=== PATIENT | female | born 1985 | race Asian ===

== ENCOUNTER 2023-06-23 18:30 | Emergency (ER) | payer OTHER, SELFPAY ==
[2023-06-23 18:37] VITALS: BP 131/90; PULSE 73; RESP 16; TEMP 36.4; O2SAT 99; BMI 29.2
[2023-06-23] MEDS: SODIUM CHLORIDE 0.9% 1,000 ML 1000 ML IV (19:01)
[2023-06-23] MEDS: MECLIZINE HCL 12.5 MG TABLET 50 MG PO (19:01)
[2023-06-23] MEDS: ONDANSETRON 4 MG/2 ML INJ IV (19:01)
[2023-06-23 19:03] LABS: Add Manual Diff / Slide Review NO; Basophils Absolute Auto 0 /uL (0-100); Basophils Percent Auto 0.9 % (0-2); Eosinophils Absolute Auto 100 /uL (0-450); Eosinophils Percent Auto 1.6 % (2-4); Hematocrit 42.8 % (36-46); Hemoglobin 14.6 g/dL (12.0-16.0); Lymphocytes Absolute Auto 1900 /uL (1100-4500); Lymphocytes Percent Auto 34.8 % (25-40); Mean Corpuscular HGB Conc 34.1 % (30-36); Monocytes Absolute Auto 300 /uL (0-900); Monocytes Percent Auto 5.7 % (3-14); Neutrophils Absolute Auto 3200 /uL (1500-7000); Platelet Count 348 X10^3/uL (150-400); Red Blood Cell Count 4.87 X10^6/uL (4.0-5.2); Red Cell Distribution Width 12.7 % (11.6-14.8); White Blood Cell Count 5.5 X10^3/uL (4.5-11.0)
--- NOTE | 2023-06-23 19:07 | PC.NURSE ---
Patient reports dizziness constantly for last week, waxing and waning in severity. Tends to get worse by late afternoon, associated nausea and vomiting. Patient reports blurry vision, like it just doesn't feel right Patient states she tried one day of dramamine with no relief.
[2023-06-23 19:17] LABS: Alanine Aminotransferase 23 IU/L (<35); Albumin 4.4 g/dL (3.5-5.0); Albumin Globulin Ratio 1.3 (1.0-2.8); Alkaline Phosphatase 72 U/L (38-126); Aspartate Aminotransferase 26 IU/L (14-36); Bilirubin Total 0.7 mg/dL (0.2-1.3); Blood Urea Nitrogen 6 mg/dL (7-17); Calcium 9.7 mg/dL (8.4-10.2); Carbon Dioxide 28 mmol/L (22-32); Chloride 102 mmol/L (98-107); Estimated Glomerular Filt Rate > 60 mL/min (>60); Globulin 3.3 g/dL (1.7-4.1); Glucose 90 mg/dL (70-100); HEMOLYSIS 31 (0-50); Potassium 3.7 mmol/L (3.4-5.1); Sodium 135 mmol/L (137-145); Total Protein 7.7 g/dL (6.3-8.2)
[2023-06-23] MEDS: ACETAMINOPHEN 325 MG TABLET 650 MG PO (19:34)
[2023-06-23 20:19] VITALS: PULSE 69; O2SAT 100
[2023-06-23 20:20] VITALS: BP 129/79; PULSE 65; O2SAT 100
[2023-06-23 20:30] VITALS: BP 118/72; PULSE 62; O2SAT 100
[2023-06-23 21:00] VITALS: BP 113/68; PULSE 61; O2SAT 99
--- NOTE | 2023-06-23 21:04 | ED.DIZZY ---
HPI - Dizziness General Chief Complaint: Dizziness Stated Complaint: dizzy/V T-2 Time Seen by Provider: 06/23/23 21:00 Source: patient Mode of arrival: Ambulatory History of Present Illness HPI Narrative: Patient is a 37-year-old female who has a history hypothyroid presenting today with dizziness. She reports that she had COVID June 03 since then she is had dizziness off and on. She reports that definitely worse with movement. However the last 2 days it has been so bad that she is been vomiting. No chest pain or palpitations no numbness tingling or weakness no visual changes. But today it got significantly worse. She thought that it would be getting better but it is not. She denies any further COVID symptoms no fever or chills. She reports that she did have bad COVID but had pretty extreme fatigue. Related Data Previous Rx's Medication Instructions Recorded meclizine 25 mg tablet 25 mg PO TID PRN dizziness #20 tabs 06/23/23 ondansetron 4 mg disintegrating 4 mg PO Q8H PRN nausea and 06/23/23 tablet vomiting #20 tabs Allergies Allergy/AdvReac Type Severity Reaction Status Date / Time No Known Drug Allergies Allergy Verified 06/23/23 18:40 Review of Systems Review of Systems ROS Unobtainable: All systems reviewed & are unremarkable except as noted in HPI and below Patient History Social History Smoking Status: Never smoker Smoking Status: Never smoker alcohol intake frequency: holidays/special occasions only Substance Use Type: does not use Exam Initial Vital Signs Initial Vital Signs: Vital Signs Temperature 97.6 F 06/23/23 18:37 Pulse Rate 73 06/23/23 18:37 Respiratory Rate 16 06/23/23 18:37 Blood Pressure 131/90 06/23/23 18:37 Pulse Oximetry 99 06/23/23 18:37 Oxygen Delivery Method Room Air 06/23/23 18:37 GENERAL: Alert 37-year-old female and in no acute distress. HEENT: Head atraumatic,EOMI,+ nystagmus pupils reactive, face symmetric, moist mucous membranes CARDIOVASCULAR: Regular rate and rhythm without murmurs, rubs or gallops. RESPIRATORY: Breath sounds equal bilaterally, no wheezes rales or rhonchi. ABDOMEN: Soft, nontender. Normoactive bowel sounds all 4 quadrants. No guarding or rebound. EXTREMITIES: Normal range of motion, no clubbing or edema. Neurovascularly intact NEUROLOGICAL: Alert and oriented x4 SKIN: Warm, dry, no laceration, no petechiae, no rashes or lesions. Scores NIH Stroke Scale Level of Conciousness: Alert, keenly responsive Ask month/age: Answers both questions correctly. Open/close eyes, close hand: Performs both tasks correctly Best gaze horizontal: Normal Visual martins: No visual loss Facial palsy: Normal symetrical movement Left arm drift: No drift for full 10 sec Right arm drift: No drift for full 10 sec Left leg drift: No drift for full 5 sec Right leg drift: No drift for full 5 sec Limb ataxia: Absent Sensory on face/arms/legs: Normal, no sensory loss Best language: No aphasia, normal Dysarthria: Normal Extinction or inattention: No abnormality Total NIH Stroke scale score: 0 Course Orders Ordered: ED Orders 06/23/23 18:53 Complete Blood Count AUTO DIFF Stat Comprehensive Metabolic Panel Stat 06/23/23 21:18 EKG-12 Lead Stat Discontinued Medications Acetaminophen (Acetaminophen 325 Mg Tablet) 650 mg PO Q4H PRN PRN Reason: Fever/Mild Pain (1-3) Last Admin: 06/23/23 19:34 Dose: 650 mg Documented By: MATTY Sodium Chloride (Normal Saline 0.9%) 1,000 mls @ 1,000 mls/hr IV BOLUS ONE Stop: 06/23/23 19:42 Last Infusion: 06/23/23 19:48 Dose: Infused Documented By: Admin: 06/23/23 19:01 Dose: 1,000 mls/hr Documented By: THOMAS Meclizine HCl (Meclizine Hcl 12.5 Mg Tablet) 50 mg PO NOW ONE Stop: 06/23/23 18:44 Last Admin: 06/23/23 19:01 Dose: 50 mg Documented By: THOMAS Meclizine HCl (Meclizine Hcl 12.5 Mg Tablet) 25 mg PO NOW ONE Stop: 06/23/23 21:13 Last Admin: 06/23/23 21:37 Dose: 25 mg Documented By: SILKE Ondansetron HCl (Ondansetron 4 Mg/2 Ml Inj) 4 mg IV NOW ONE Stop: 06/23/23 18:44 Last Admin: 06/23/23 19:01 Dose: 4 mg Documented By: [facility] Ondansetron HCl (Ondansetron 4 Mg Odt Prepack) 1 bottle MISC SEEINSTR ONE Stop: 06/23/23 21:13 Last Admin: 06/23/23 21:37 Dose: 1 bottle Documented By: Vital Signs Vital signs: Vital Signs - 8 hr 06/23/23 20:19 06/23/23 20:20 06/23/23 20:20 Pulse Rate 69 65 Blood Pressure 129/79 Pulse Oximetry 100 100 06/23/23 20:30 06/23/23 20:30 06/23/23 21:00 Pulse Rate 62 Blood Pressure 118/72 113/68 Pulse Oximetry 100 06/23/23 21:00 06/23/23 21:30 06/23/23 21:30 Pulse Rate 61 68 Blood Pressure 125/73 Pulse Oximetry 99 100 MDM - Dizziness Lab Data 06/23/23 18:53 06/23/23 18:53 Labs: Lab Results 06/23/23 Range/Units 18:53 WBC 5.5 (4.5-11.0) X10^3/uL RBC 4.87 (4.0-5.2) X10^6/uL Hgb 14.6 (12.0-16.0) g/dL Hct 42.8 (36-46) % MCV 88.0 (80-100) fL MCH 30.0 (26-34) PG MCHC 34.1 (30-36) % RDW 12.7 (11.6-14.8) % Plt Count 348 (150-400) X10^3/uL Neut % (Auto) 57.0 (50-75) % Lymph % (Auto) 34.8 (25-40) % [place] % (Auto) 5.7 (3-14) % Eos % (Auto) 1.6 L (2-4) % Baso % (Auto) 0.9 (0-2) % Neut # (Auto) 3200 (6282-2710) /uL Lymph # (Auto) 1900 (6011-1857) /uL [place] # (Auto) 300 (0-900) /uL Eos # (Auto) 100 (0-450) /uL Baso # (Auto) 0 (0-100) /uL Sodium 135 L (137-145) mmol/L Potassium 3.7 (3.4-5.1) mmol/L Chloride 102 (98-107) mmol/L Carbon Dioxide 28 (22-32) mmol/L BUN 6 L (7-17) mg/dL Creatinine 0.50 L (0.52-1.04) mg/dL Estimated GFR > 60 (>60) mL/min BUN/Creatinine Ratio 12.0 (6-22) Glucose 90 (70-100) mg/dL Calcium 9.7 (8.4-10.2) mg/dL Total Bilirubin 0.7 (0.2-1.3) mg/dL AST 26 (14-36) IU/L ALT 23 (<35) IU/L Alkaline Phosphatase 72 (38-126) U/L Total Protein 7.7 (6.3-8.2) g/dL Albumin 4.4 (3.5-5.0) g/dL Globulin 3.3 (1.7-4.1) g/dL Albumin/Globulin Ratio 1.3 (1.0-2.8) Urine Dip Bedside Urine Glucose Negative Bedside Urine Bilirubin - Negative Bedside Urine Ketone - Negative Urine Specific [place] 1.01 Bedside Urine Occult Blood +/- Bedside Urine pH 7.5 Bedside Urine Protein - Negative Bedside Urine Urobilinogen - Negative Bedside Urine Nitrite - Negative Bedside Urine Leukocytes - Negative Esterase ECG Data Interpretation: Normal sinus rhythm rate 53 HI interval 172 are QRS [address] changes mild artifact MDM Narrative Medical decision making narrative: Patient is a 37-year-old female who presents with dizziness. She is had ongoing dizziness for the past couple of weeks definitely positional. Worse over the last 2 days with nausea vomiting. Symptoms are most consistent with a vestibular neuritis and or benign paroxysmal positional vertigo. Having any focal deficits to suggest CVA. She is actually improving after meclizine and Zofran. We talked about an Ericka maneuver she was told to do that previously but it made her significantly worse she is not willing to try now. She has been referred to physical therapy we also talked about ENT referral Discharge Plan Departure Patient Disposition: Home Clinical Impression: Vertigo Instructions: DI for Vertigo Activity Restrictions/Additional Instructions: *You have been diagnosed with vertigo *What to do: At this time this should resolve on its own. You can try an Ericka maneuver at home if you choose. I agree with physical therapy may require ear nose and throat referral. *Continue to take medications as directed --> [facility] Meclizine 25-50 mg every 8 hours for dizziness Zofran 4 mg every 6 8 hours if needed for nausea or vomiting *Follow up with your primary care provider in 2-3 days or call [phone] *Return to ER if you should have persistent dizziness numbness tingling weakness visual changes or any new, worsening or concerning symptoms Prescriptions: New meclizine 25 mg tablet 25 mg PO TID PRN (Reason: dizziness) Qty: 20 0RF ondansetron 4 mg tablet,disintegrating 4 mg PO Q8H PRN (Reason: nausea and vomiting) Qty: 20 0RF Stand Alone Forms: Patient Portal/API
[2023-06-23 21:30] VITALS: BP 125/73; PULSE 68; O2SAT 100
[2023-06-23] MEDS: ONDANSETRON 4 MG ODT PREPACK 1 BOTTLE MISC (21:37)
[2023-06-23] MEDS: MECLIZINE HCL 12.5 MG TABLET 25 MG PO (21:37)
== END 2023-06-23 21:43 | disposition home or self-care (01) ==
PROVIDERS: Emergency Provider Emergency Medicine
DX: R42 Dizziness and giddiness (principal)
CPT/HCPCS: 36415; 80053; 81003; 85025; 93005; 96361; 96374; 99284; J2405

== ENCOUNTER → 2023-07-03 18:39 | Outpatient (CLI) | payer OTHER, SELFPAY ==
--- NOTE | 2023-07-03 | DI.MRI.S_ITS ---
PROCEDURE: MR HEAD/BRAIN WO CON INDICATIONS: Dizziness and giddiness TECHNIQUE: Noncontrast axial T1 spin echo, axial T2 fast spin echo, sagittal and axial FLAIR, coronal T2 fast spin echo, axial gradient echo, axial diffusion and ADC through the brain. COMPARISON: None. FINDINGS: Image quality: Excellent. CSF Spaces: Basal cisterns are patent. No extra-axial fluid collections. Ventricles are normal in size and shape. Brain: No intracranial masses or hemorrhage. Cortez/white matter interface is normal. Brainstem appears normal. Diffusion-weighted images demonstrate no acute ischemic insult. No chronic ischemic insults. Normal intravascular flow voids are present. Skull and face: Calvarium has normal marrow signal. Orbits appear normal. Sinuses: Partially visualized right maxillary mucous retention cyst versus polyp.. IMPRESSION: Unremarkable exam. Dictated by: Laquita Beverly M.D. on 07/04/2023 at 14:46 Approved by: Laquita Beverly M.D. on 07/04/2023 at 14:47
== END ==
PROVIDERS: Referring Provider Physician Assistant; Visit Provider Physician Assistant
DX: R42 Dizziness and giddiness (principal)
CPT/HCPCS: 70551

== ENCOUNTER 2024-02-08 11:32 | Emergency (ER) | payer OTHER, SELFPAY ==
[2024-02-08 11:50] VITALS: BP 120/84; PULSE 92; RESP 18; TEMP 37.3; O2SAT 98; BMI 29.2
[2024-02-08 12:45] LABS: Influenza A - CEPHEID Flu A NEGATIVE (NEGATIVE); Influenza B - CEPHEID Flu B NEGATIVE (NEGATIVE); Respiratory Syncytial Virus Negative (Negative)
[2024-02-08 12:50] LABS: COVID-19 CEPHEID 4-PLEX PCR Negative (Negative)
--- NOTE | 2024-02-08 13:22 | ED.URI ---
HPI - URI/Sore Throat <Janelle Kwan PA-C - Last Filed: 02/08/24 14:35> General Chief Complaint: Upper Respiratory Symptoms Stated Complaint: cough, chest pain, flu like symptoms Time Seen by Provider: 02/08/24 13:11 Source: patient Mode of arrival: Ambulatory History of Present Illness HPI Narrative: Is a 38-year-old woman presenting with concern for 2-3 days of upper respiratory symptoms with bothersome cough productive of clear phlegm nasal congestion and headaches. Patient also endorses some body aches. Sore throat is her primary complaint. Patient states she has been eating and drinking normally and denies nausea vomiting diarrhea fevers chills or any other symptoms. No one around her has been sick but she has a child in school and a cough has been going around. Related Data Previous Rx's Medication Instructions Recorded meclizine 25 mg tablet 25 mg PO TID PRN dizziness #20 tabs 06/23/23 ondansetron 4 mg disintegrating 4 mg PO Q8H PRN nausea and 06/23/23 tablet vomiting #20 tabs azelastine 137 mcg (0.1 %) nasal 2 spray intranasal BID 14 days #30 02/08/24 spray aerosol mL benzonatate 100 mg capsule 100 mg PO TID PRN cough 10 days 02/08/24 #30 caps codeine 7.5 mg-guaifenesin 225 5 ml PO Q6H PRN cold symptoms 10 02/08/24 mg/5 mL oral liquid days #473 mL Allergies Allergy/AdvReac Type Severity Reaction Status Date / Time No Known Drug Allergies Allergy Verified 06/23/23 18:40 Review of Systems <Janelle Kwan PA-C - Last Filed: 02/08/24 14:35> Review of Systems Narrative: See HPI Patient History <Janelle Kwan PA-C - Last Filed: 02/08/24 14:35> Social History Smoking Status: Never smoker Smoking Status: Never smoker alcohol intake frequency: holidays/special occasions only Substance Use Type: does not use Exam <Janelle Kwan PA-C - Last Filed: 02/08/24 14:35> Narrative Exam Narrative: GENERAL: [38] year old patient appears stated age. Well-developed patient, in mild distress. HEAD: Atraumatic. Normocephalic. EYES: Pupils equal round and reactive. Extraocular motions intact. No scleral icterus. No injection or drainage. ENT: Nose without bleeding, purulent drainage. Throat with mild generalized erythema, without tonsillar hypertrophy or exudate. Airway patent. NECK: Trachea midline. Non tender CARDIOVASCULAR: Regular rate and rhythm without murmurs, gallops, or rubs. RESPIRATORY: Clear to auscultation. Breath sounds equal bilaterally. No wheezes, rales, or rhonchi. GASTROINTESTINAL: Abdomen nondistended. EXTREMITIES: No edema or joint tenderness. NEURO: AOx3. SKIN: No rash or erythema of visible areas Initial Vital Signs Initial Vital Signs: Vital Signs Temperature 99.1 F 02/08/24 11:50 Pulse Rate 92 H 02/08/24 11:50 Respiratory Rate 18 02/08/24 11:50 Blood Pressure 120/84 02/08/24 11:50 Pulse Oximetry 98 02/08/24 11:50 Oxygen Delivery Method Room Air 02/08/24 11:50 <Herminia Lau DO - Last Filed: 02/09/24 08:53> Initial Vital Signs Initial Vital Signs: Vital Signs Temperature 99.1 F 02/08/24 11:50 Pulse Rate 92 H 02/08/24 11:50 Respiratory Rate 18 02/08/24 11:50 Blood Pressure 120/84 02/08/24 11:50 Pulse Oximetry 98 02/08/24 11:50 Oxygen Delivery Method Room Air 02/08/24 11:50 Course <Janelle Kwan PA-C - Last Filed: 02/08/24 14:35> Orders Ordered: Discontinued Medications Acetaminophen (Acetaminophen 325 Mg Tablet) 650 mg PO NOW ONE Stop: 02/08/24 13:26 Last Admin: 02/08/24 13:35 Dose: 650 mg Documented By: MARY Benzonatate (Benzonatate 100 Mg Capsule) 100 mg PO NOW ONE Stop: 02/08/24 13:24 Last Admin: 02/08/24 13:26 Dose: 100 mg Documented By: MARY Ibuprofen (Ibuprofen 400 Mg Tablet) 400 mg PO NOW ONE Stop: 02/08/24 13:26 Last Admin: 02/08/24 13:34 Dose: 400 mg Documented By: MARY Vital Signs Vital signs: Vital Signs - 8 hr 02/08/24 11:50 02/08/24 14:30 Temperature 99.1 F Pulse Rate 92 H 90 Respiratory Rate 18 18 Blood Pressure 120/84 121/81 Pulse Oximetry 98 98 Oxygen Delivery Method Room Air Room Air <Herminia Lau DO - Last Filed: 02/09/24 08:53> Orders Ordered: Discontinued Medications Acetaminophen (Acetaminophen 325 Mg Tablet) 650 mg PO NOW ONE Stop: 02/08/24 13:26 Last Admin: 02/08/24 13:35 Dose: 650 mg Documented By: MARY Benzonatate (Benzonatate 100 Mg Capsule) 100 mg PO NOW ONE Stop: 02/08/24 13:24 Last Admin: 02/08/24 13:26 Dose: 100 mg Documented By: MARY Ibuprofen (Ibuprofen 400 Mg Tablet) 400 mg PO NOW ONE Stop: 02/08/24 13:26 Last Admin: 02/08/24 13:34 Dose: 400 mg Documented By: MARY Vital Signs Vital signs: Vital Signs - 8 hr 02/08/24 11:50 02/08/24 14:30 Temperature 99.1 F Pulse Rate 92 H 90 Respiratory Rate 18 18 Blood Pressure 120/84 121/81 Pulse Oximetry 98 98 Oxygen Delivery Method Room Air Room Air MDM - URI/Sore Throat <Janelle Kwan PA-C - Last Filed: 02/08/24 14:35> Differential Diagnosis Differential diagnosis: Likely upper respiratory infection, sinusitis, viral infection, bronchitis and pharyngitis Medical Records Attestation: I reviewed the patient's medical records. Lab Data Attestation: I reviewed the patient's lab results. Labs: Lab Results 02/08/24 02/08/24 Range/Units 12:00 13:20 SARS-CoV-2 (PCR) Negative (Negative) Influenza A (RT-PCR) Flu a negative (NEGATIVE) Influenza B (RT-PCR) Flu b negative (NEGATIVE) RSV (PCR) Negative (Negative) Group A Strep (PCR) Negative (Negative) MDM Narrative Medical decision making narrative: This is a well-appearing 38-year-old woman presenting with concern for upper respiratory symptoms for 2-3 days. Viral PCR returns negative. Based on patient's primary complaint of pharyngitis and some erythema noted a strep is obtained and rapid test is negative. Low suspicion for strep based on exam culture was not sent. Suspect patient has a viral upper respiratory illness. With only 2-3 days of symptoms and clear lung sounds no indication for x-ray in a 38-year-old woman. Patient is counseled to get plenty of rest fluids, prescription for azelastine for nasal congestion, benzonatate and guaifenesin with codeine for cough. Return precautions provided, follow-up plan discussed, all questions answered. <Herminia Lau, DO - Last Filed: 02/09/24 08:53> Lab Data Labs: Lab Results 02/08/24 02/08/24 Range/Units 12:00 13:20 SARS-CoV-2 (PCR) Negative (Negative) Influenza A (RT-PCR) Flu a negative (NEGATIVE) Influenza B (RT-PCR) Flu b negative (NEGATIVE) RSV (PCR) Negative (Negative) Group A Strep (PCR) Negative (Negative) Discharge Plan Departure Patient Disposition: Home Clinical Impression: Upper respiratory infection, viral Cough Qualifiers: Cough type: acute Qualified Code(s): R05.1 - Acute cough Activity Restrictions/Additional Instructions: *You have been diagnosed with [viral upper respiratory infection, cough] *What to do: *Please continue to take your regular medications as directed. [ 2] New medication prescriptions sent to your pharmacy: [Benzonatate, azelastine, cough syrup guaifenesin with codeine] [ ] New medication written as a paper prescription [ ] No new medications given *Please follow up with your primary care provider in 2-3 days, call for an appointment. Let them know you were seen in the Emergency Department and that we ask that you be seen in follow up. We will electronically transmit a record of today's note if your PCP is in our system. We tested her for common viruses today including COVID flu a flu B and RSV as well as for strep. Your rapid strep returned negative. Your exam is most suggestive of a viral illness. You have a bothersome cough and congestion; I have prescribed to cough medicines for you, codeine with guaifenesin syrup as well as benzonatate and also a nasal spray that should help reduce your nasal congestion and help with your symptoms. You can also try [id number] Flonase. I recommend getting plenty of rest and fluids and this should resolve on its own in time. Monitor for new or worsening symptoms and follow up with your primary care provider. *If you do not have a primary care provider please contact the [facility] Resource line at [phone]. They will ask some questions about your medical history and help get you set up with a doctor in the community. *Return to Emergency Department if you should have any new, worsening or concerning symptoms, such as [fever greater than 101 F, shaking chills, worsening pain, persistent vomiting or other bothersome symptoms] Prescriptions: New benzonatate 100 mg capsule 100 mg PO TID PRN (Reason: cough) 10 Days Qty: 30 0RF azelastine 137 mcg (0.1 %) aerosol,spray 2 spray intranasal BID 14 Days Qty: 30 0RF Rx Instructions: administer into each nostril codeine-guaifenesin 7.5-225 mg/5 mL liquid 5 ml PO Q6H PRN (Reason: cold symptoms) 10 Days Qty: 473 0RF No Action meclizine 25 mg tablet 25 mg PO TID PRN (Reason: dizziness) Qty: 20 0RF ondansetron 4 mg tablet,disintegrating 4 mg PO Q8H PRN (Reason: nausea and vomiting) Qty: 20 0RF Referrals: Jung Ndiaye PA-C [Primary Care Provider] - Stand Alone Forms: Patient Portal/API ED Sign-out <Herminia Lau DO - Last Filed: 02/09/24 08:53> Cosign ED Attending Kevin Attestation: I was available for consultation.
[2024-02-08] MEDS: BENZONATATE 100 MG CAPSULE PO (13:26)
[2024-02-08] MEDS: IBUPROFEN 400 MG TABLET PO (13:34)
[2024-02-08] MEDS: ACETAMINOPHEN 325 MG TABLET 650 MG PO (13:35)
[2024-02-08 14:02] LABS: Strep Grp A by PCR Rapid Negative (Negative)
[2024-02-08 14:30] VITALS: BP 121/81; PULSE 90; RESP 18; O2SAT 98
== END 2024-02-08 14:30 | disposition home or self-care (01) ==
PROVIDERS: Emergency Provider Student in an Organized Health Care Education/Training Program; PCP Physician Assistant
DX: J06.9 Acute upper respiratory infection, unspecified (principal)
CPT/HCPCS: 0241U; 87651; 99283

== ENCOUNTER 2024-07-06 10:33 | Emergency (ER) | payer OTHER, SELFPAY ==
[2024-07-06 11:13] VITALS: BP 115/59; PULSE 67; RESP 16; TEMP 36.2; O2SAT 100; BMI 30.5
[2024-07-06 12:17] LABS: Appearance Urine UA CLEAR; Bilirubin Urine UA NEGATIVE (NEGATIVE); Color Urine UA YELLOW; Glucose Urine UA NEGATIVE (Negative); Ketones Urine UA NEGATIVE (NEGATIVE); Leukocyte Esterase Urine UA NEGATIVE (NEGATIVE); Nitrite Urine UA NEGATIVE (Negative); Occult Blood Urine UA 1+ (Negative); Protein Urine UA NEGATIVE (Negative); Urobilinogen Urine UA 0.2 E.U./dL (0.2)
--- NOTE | 2024-07-06 12:21 | ED_ITS ---
HPI - Back Pain/Injury <Cassie Trujillo PA-C - Last Filed: 07/06/24 13:41> General Chief Complaint: Back Pain/Injury Stated Complaint: Severe Low Back Pain, Cough Time Seen by Provider: 07/06/24 12:21 History of Present Illness HPI Narrative: Patient has a 38-year-old female presents to the emergency room today with 2 weeks of lower thoracic paraspinal discomfort and pain worse when she coughs worse when she lays flat. No recent injury, no recent trauma, no recent URI symptoms. Currently states that it has a dull ache, 7-8 on the pain scale, however the patient currently appears to be resting comfortably in no acute distress. The patient states that it hurts when she coughs, patient has done topical preparations, has not taken anything orally for pain. Patient has an autoimmune disease, she thought perhaps it might be her kidneys that are causing the issues, she does state that there has been some urinary frequency and urgency but not painful. She denies fever. She denies flank pain. She denies nausea or vomiting, no abdominal pain, no other physical complaints currently at this time. Related Data Previous Rx's Medication Instructions Recorded meclizine 25 mg tablet 25 mg PO TID PRN dizziness #20 tabs 06/23/23 ondansetron 4 mg disintegrating 4 mg PO Q8H PRN nausea and 06/23/23 tablet vomiting #20 tabs prednisone 10 mg tablets in a dose 10 mg PO DIRECTED #21 ea 07/06/24 pack tizanidine 4 mg capsule 4 mg PO BID PRN muscle spasticity 07/06/24 #10 caps Allergies Allergy/AdvReac Type Severity Reaction Status Date / Time No Known Drug Allergies Allergy Verified 06/23/23 18:40 Review of Systems <Cassie Trujillo PA-C - Last Filed: 07/06/24 13:41> Review of Systems Narrative: Negative except as above Musculoskeletal Comments: Bilateral lower thoracic paraspinal pain worse when she lays flat worse when she coughs Patient History <Cassie Trujillo PA-C - Last Filed: 07/06/24 13:41> Social History Smoking Status: Never smoker Smoking Status: Never smoker alcohol intake frequency: holidays/special occasions only Substance Use Type: does not use Exam <Cassie Trujillo PA-C - Last Filed: 07/06/24 13:41> Initial Vital Signs Initial Vital Signs: Vital Signs Temperature 97.1 F L 07/06/24 11:13 Pulse Rate 67 07/06/24 11:13 Respiratory Rate 16 07/06/24 11:13 Blood Pressure 115/59 L 07/06/24 11:13 Pulse Oximetry 100 07/06/24 11:13 Oxygen Delivery Method Room Air 07/06/24 11:13 Negative except as above Const General: cooperative, healthy appearing, comfortable, well developed, well groomed, No acute distress, No in distress, No anxious and other (7-8 pain currently however patient appears to be very comfortable) [facility] Head: normal to inspection, normocephalic and atraumatic Eyes General: Yes appearance normal, both eyes and all related structures Pupils: PERRL EOM: EOM intact bilaterally Resp Auscultation: clear to auscultation bilaterally, no crackles, no rales, no rhonchi and no wheezes Cardio Rate: regular rate Rhythm: regular rhythm Heart Sounds: S1 normal and S2 normal Back/Spine/Pelvis Thoracic/Lumbar Spine: thoraco-lumbar ROM normal, No pain with thoraco-lumbar ROM, paraspinal tenderness, No thoraco-lumbar ROM limited, No thoraco-lumbar spasm, No thoracic spinal tenderness and No lumbar spinal tenderness Other: No CVAT tenderness, with palpation the patient says that the pain is deep it is not superficial. Skin Other: Warm pink and dry Neuro Other: Cranial nerves are grossly intact Extrem Other: Range of motion, strength, pulses, cap refill preserved in the upper and lower extremities Psych Other: Appearance, mental status, speech, movement, mood, affect, attitude, thought process, thought content and judgment intact <Herminia Lau DO - Last Filed: 07/07/24 08:14> Initial Vital Signs Initial Vital Signs: Vital Signs Temperature 97.1 F L 07/06/24 11:13 Pulse Rate 67 07/06/24 11:13 Respiratory Rate 16 07/06/24 11:13 Blood Pressure 115/59 L 07/06/24 11:13 Pulse Oximetry 100 07/06/24 11:13 Oxygen Delivery Method Room Air 07/06/24 11:13 Scores <Cassie Trujillo PA-C - Last Filed: 07/06/24 13:41> GCS Citation: 15 Course <Cassie Trujillo PA-C - Last Filed: 07/06/24 13:41> Orders Ordered: Discontinued Medications Acetaminophen (Acetaminophen 325 Mg Tablet) 650 mg PO NOW ONE Stop: 07/06/24 12:35 Last Admin: 07/06/24 12:39 Dose: 650 mg Documented By: RL Reevaluation(s) Reevaluation #1: Patient given 650 mg of Tylenol Patient rechecked 120, she remains stoic, sitting in the chair, appears to be in no acute distress, I ask her how she is feeling, she then forced coughs, and then states it she feels a little bit better, and then does not say anything, I ask her is her pain better she states a little bit I ask her she stated her pain was initially a 7 and 8 when she came in she states her pains maybe 5 or 6 at this point in time. However, the patient continues to appear to be completely 100% pain-free, does not appear to be in any acute distress it is difficult for me to really correlate or evaluate her pain. Vital Signs Vital signs: Vital Signs - 8 hr 07/06/24 11:13 Temperature 97.1 F L Pulse Rate 67 Respiratory Rate 16 Blood Pressure 115/59 L Pulse Oximetry 100 Oxygen Delivery Method Room Air Reviewed <Herminia Lau DO - Last Filed: 07/07/24 08:14> Orders Ordered: Discontinued Medications Acetaminophen (Acetaminophen 325 Mg Tablet) 650 mg PO NOW ONE Stop: 07/06/24 12:35 Last Admin: 07/06/24 12:39 Dose: 650 mg Documented By: RL Vital Signs Vital signs: Vital Signs - 8 hr 07/06/24 11:13 Temperature 97.1 F L Pulse Rate 67 Respiratory Rate 16 Blood Pressure 115/59 L Pulse Oximetry 100 Oxygen Delivery Method Room Air MDM - Back Pain/Injury <Cassie Trujillo PA-C - Last Filed: 07/06/24 13:41> Lab Data Labs: Lab Results 07/06/24 Range/Units 12:00 Urine Color Yellow Urine Appearance Clear Urine pH 6.0 (4.5-8.0) Ur Specific [place] 1.020 (1.000-1.035) Urine Protein Negative (Negative) Urine Glucose (UA) Negative (Negative) g/dL Urine Ketones Negative (NEGATIVE) Urine Occult Blood 1+ H (Negative) Urine Nitrate Negative (Negative) Urine Bilirubin Negative (NEGATIVE) Urine Urobilinogen 0.2 (0.2) E.U./dL Ur Leukocyte Esterase Negative (NEGATIVE) Urine RBC 1-5/hpf (0-5/HPF) Urine WBC None seen (0-5/HPF) Ur Squamous Epith Cells 0-1 /hpf (0-5/HPF) Urine Bacteria None seen (None) Ur Culture Indicated? Cult not indicated Vol Urine Centrifuged 10ml (spun) ? Urine Color Urine Appearance Urine pH (4.5-8.0) Ur Specific [place] (1.000-1.035) Urine Protein (Negative) Urine Glucose (UA) (Negative?g/dL) Urine Ketones (NEGATIVE) Urine Occult Blood (Negative) Urine Nitrate (Negative) Urine Bilirubin (NEGATIVE) Urine Urobilinogen (0.2?E.U./dL) Ur Leukocyte Esterase (NEGATIVE) Urine RBC (0-5/HPF) Urine WBC (0-5/HPF) Ur Squamous Epith Cells (0-5/HPF) Urine Bacteria (None) Ur Culture Indicated? Vol Urine Centrifuged 07/06/24 12:00 Yellow Clear 6.0 1.020 Negative Negative Negative 1+?H Negative Negative 0.2 Negative 1-5/hpf None seen 0-1 /hpf None seen Cult not indicated 10ml (spun) Imaging Data Chest x-ray: My Impression: Negative for any acute Cardiothoracic or lung abnormalities Radiologist's Impression: [address] [address] XRay Report Signed Patient: Rain Hylton MR#: [id number] : 1985 Acct:[id number] Age/Sex: 38 / F Date of Service: 07/06/24 Loc: ED Accession Number: [id number] Procedure: XR chest 2V Ordering Provider: Cassie Trujillo PA-C PROCEDURE: XR CHEST 2V INDICATIONS: Coughing, back pain autoimmune disease TECHNIQUE: 2 views of the chest were acquired. COMPARISON: None. FINDINGS: Surgical changes and devices: None. Lungs and pleura: Lungs are clear. No pleural effusions or pneumothorax. Mediastinum: Mediastinal contours are normal. Heart size is normal. Bones and chest wall: No suspicious bony abnormalities. Soft tissues appear unremarkable. IMPRESSION: No acute cardiopulmonary abnormality is seen. Approved by: Henry Walters M.D. on 07/06/2024 at 12:27 MDM Narrative Medical decision making narrative: 38-year-old female 2 weeks of paraspinal thoracic lower rib discomfort and pain associated with laying and coughing. Who has done topical preparations with minimal relief, no oral nonsteroidals. With an autoimmune disease who is concerned for kidney stone, who is concerned for possible UTI. With no fevers, no CVAT tenderness, who is completely stoic and sitting in no acute distress, w luis states that her discomfort and pain is a 7-8. Worse with coughing, worse with laying flat. Urine positive for trace blood only Chest x-ray is negative No CVAT tenderness upon examination Examination the patient states the pain is deep Mild relief with some Tylenol orally We will treat the patient with muscle relaxer and a short course of steroids for inflammation Supportive therapy education ED precautions Encouraged her to continue with topical preparations Follow up with her primary care doctor as needed return to the emergency department as needed. Differential diagnosis; myofascial thoracic strain, sprain, costochondritis. <Herminia Lau, - Last Filed: 07/07/24 08:14> Lab Data Labs: Lab Results 07/06/24 Range/Units 12:00 Urine Color Yellow Urine Appearance Clear Urine pH 6.0 (4.5-8.0) Ur Specific [place] 1.020 (1.000-1.035) Urine Protein Negative (Negative) Urine Glucose (UA) Negative (Negative) g/dL Urine Ketones Negative (NEGATIVE) Urine Occult Blood 1+ H (Negative) Urine Nitrate Negative (Negative) Urine Bilirubin Negative (NEGATIVE) Urine Urobilinogen 0.2 (0.2) E.U./dL Ur Leukocyte Esterase Negative (NEGATIVE) Urine RBC 1-5/hpf (0-5/HPF) Urine WBC None seen (0-5/HPF) Ur Squamous Epith Cells 0-1 /hpf (0-5/HPF) Urine Bacteria None seen (None) Ur Culture Indicated? Cult not indicated Vol Urine Centrifuged 10ml (spun) Discharge Plan Departure Patient Disposition: Home Clinical Impression: Costochondritis, Myofascial muscle pain Prescriptions: New tizanidine 4 mg capsule 4 mg PO BID PRN (Reason: muscle spasticity) Qty: 10 0RF prednisone 10 mg tablets,dose pack 10 mg PO DIRECTED Qty: 21 0RF Rx Instructions: see taper instructions No Action meclizine 25 mg tablet 25 mg PO TID PRN (Reason: dizziness) Qty: 20 0RF ondansetron 4 mg tablet,disintegrating 4 mg PO Q8H PRN (Reason: nausea and vomiting) Qty: 20 0RF Referrals: Jung Ndiaye PA-C [Primary Care Provider] - Stand Alone Forms: Patient Portal/API ED Sign-out <Herminia Lau DO - Last Filed: 07/07/24 08:14> Cosign ED Attending [place] Attestation: I was available for consultation.
[2024-07-06 12:29] LABS: Bacteria Urine None Seen; Culture Indicated Urine Cult Not Indicated; RBC Urine 1-5/HPF (0-5/HPF); Squamous Epithelial Cell Urine 0-1 /HPF (0-5/HPF); Urine Volume 10mL (spun); WBC Urine None Seen (0-5/HPF)
--- NOTE | 2024-07-06 12:34 | DI.RAD.S_ITS ---
PROCEDURE: XR CHEST 2V INDICATIONS: Coughing, back pain autoimmune disease TECHNIQUE: 2 views of the chest were acquired. COMPARISON: None. FINDINGS: Surgical changes and devices: None. Lungs and pleura: Lungs are clear. No pleural effusions or pneumothorax. Mediastinum: Mediastinal contours are normal. Heart size is normal. Bones and chest wall: No suspicious bony abnormalities. Soft tissues appear unremarkable. IMPRESSION: No acute cardiopulmonary abnormality is seen. Approved by: Henry Walters M.D. on 07/06/2024 at 12:27
[2024-07-06] MEDS: ACETAMINOPHEN 325 MG TABLET 650 MG PO (12:39)
[2024-07-06 13:28] VITALS: BP 130/62; PULSE 68; RESP 16; O2SAT 98
== END 2024-07-06 13:43 | disposition home or self-care (01) ==
PROVIDERS: Emergency Medicine; Emergency Provider Physician Assistant; PCP Physician Assistant
DX: M94.0 Chondrocostal junction syndrome [Tietze] (principal); M79.18 Myalgia, other site
CPT/HCPCS: 71046; 81001; 99283